=== PATIENT | male | born 1960 | race Caucasian/White ===

== ENCOUNTER 2019-02-01 11:06 | Emergency (ER) | payer BC | END 2019-02-01 12:16 | disposition home or self-care (01) | LOC: FTE 11:06 | DX: Z01.89 Encounter for other specified special examinations (principal); Z87.891 Personal history of nicotine dependence | CPT/HCPCS: 99282 ==

== ENCOUNTER 2019-04-12 14:27 | Emergency (ER) | payer BC | END 2019-04-12 16:43 | disposition home or self-care (01) | LOC: FTE 14:27 | DX: Z00.00 Encounter for general adult medical examination without abnormal findings (principal); Z87.891 Personal history of nicotine dependence | CPT/HCPCS: 99283 ==

== ENCOUNTER 2019-04-27 07:45 | Day surgery (SDC) | payer BC ==
[~2019-04-27 07:45] MED LIST: SOD CHLORIDE 0.9% 1,000 ML IV
[2019-04-27 08:44] LABS: ADD MAN DIFF? NO
[2019-04-27 08:48] LABS: BASOPHILS % 0.5 % (0.0-2.0); EOSINOPHILS # 0.2 10^3/ul (0.0-0.5); EOSINOPHILS % 2.6 % (0.0-7.0); HEMOGLOBIN 14.3 g/dl (14.0-18.0); LYMPHOCYTES # 1.7 10^3/ul (0.8-2.9); MEAN CORPUSCULAR HEMOGLOBIN 31.2 pg (29.0-33.0); MEAN CORPUSCULAR VOLUME 91.7 fl (82.0-101.0); MEAN PLATELET VOLUME 10.4 fl (7.4-10.4); MONOCYTE # 0.5 10^3/ul (0.3-0.9); MONOCYTES % 8.2 % (0.0-11.0); NEUTROPHIL # 3.7 10^3/ul (1.6-7.5); NEUTROPHILS % 60.2 % (39.0-77.0); PLATELET COUNT 175 10^3/UL (140-415); RED BLOOD COUNT 4.58 10^6/ul (4.70-6.10); RED CELL DISTRIBUTION WIDTH 13.2 % (11.5-14.5)
[2019-04-27 08:48] LABS: WHITE BLOOD COUNT 6.2 10^3/ul (4.8-10.8)
[2019-04-27 09:13] LABS: INR 0.91; PROTIME 12.4 Sec (11.9-14.9)
[2019-04-27 09:14] LABS: ALANINE AMINOTRANSFERASE 22 IU/L (13-69); ALBUMIN 3.7 g/dl (3.3-4.9); ALBUMIN/GLOBULIN RATIO 1.15; ALKALINE PHOSPHATASE 121 IU/L (42-121); ANION GAP 11 (5-13); ASPARTATE AMINO TRANSFERASE 20 IU/L (15-46); BILIRUBIN,INDIRECT 0.3 mg/dl (0-1.1); BILIRUBIN,TOTAL 0.3 mg/dl (0.2-1.3); BLOOD UREA NITROGEN 8 mg/dl (7-20); CALCIUM 8.6 mg/dl (8.4-10.2); CARBON DIOXIDE 25 mmol/L (21-31); CHLORIDE 109 mmol/L (97-110); CREATININE 0.98 mg/dl (0.61-1.24); Estimated GFR > 60 mL/min (>60); GLUCOSE 104 mg/dl (70-220); PARTIAL THROMBOPLASTIN TIME 33.2 Sec (23.0-35.0); POTASSIUM 4.3 mmol/L (3.5-5.1); TOTAL PROTEIN 6.9 g/dl (6.1-8.1)
[2019-04-27 09:22] LABS: SODIUM 145 mmol/L (135-144)
[2019-04-27] MEDS ORDERED: MIDAZOLAM 1 MG/ML 2 ML INJ (12:57)
[2019-04-27] MEDS ORDERED: KETOROLAC 30 MG INJ (12:57)
[2019-04-27] MEDS ORDERED: PROPOFOL 20 ML (12:57)
[2019-04-27] MEDS ORDERED: ONDANSETRON 4 MG INJ (12:57)
[2019-04-27] MEDS ORDERED: CEFAZOLIN 1 GM INJ (12:59)
[2019-04-27] MEDS ORDERED: ONDANSETRON 4 MG INJ IV ×2 (13:00→13:30)
[2019-04-27] MEDS ORDERED: ACETAMINOPHEN 325 MG TAB PO (13:00)
[2019-04-27] MEDS ORDERED: morphine 2 MG INJ IV (13:00)
[2019-04-27] MEDS ORDERED: HYDROCODONE/APAP (5/325) TAB PO (13:00)
[2019-04-27] MEDS: BUPIVACAINE 0.25%/EPI (SDV) 30 ML INJ (13:08)
[2019-04-27] MEDS ORDERED: HYDROmorphONE 1 MG/5 ML IV SYRINGE IV (13:30)
[2019-04-27] MEDS ORDERED: FENTAnyl 50 MCG/ML VIAL IV (13:30)
[2019-04-27] MEDS ORDERED: OXYCODONE/ACETAMINOPHEN (5/325) TAB PO (13:30)
== END 2019-04-27 15:28 | disposition home or self-care (01) ==
LOC: SDS 07:45
DX: C44.311 Basal cell carcinoma of skin of nose (principal)
CPT/HCPCS: 11644; 80053; 85025; 85610; 85730; 88305; 88331